=== PATIENT | female | born 1965 | race African-American/Black ===

== ENCOUNTER 2017-10-10 12:52 | Outpatient (CLI) | payer OTHER | END 2017-10-10 12:53 | disposition home or self-care (01) | LOC: BICMAMMO 12:52 | PROVIDERS: ATTEND Obstetrics & Gynecology | DX: Z12.31 Encounter for screening mammogram for malignant neoplasm of breast (principal) | CPT/HCPCS: 77063; 77067 ==

== ENCOUNTER 2018-10-14 10:52 | Day surgery (SDC) | payer OTHER ==
[2018-10-13 09:32] VITALS: BMI 49.2
[2018-10-14] MEDS ORDERED: PROPOFOL 200 MG/20 ML VIAL ONE (15:07)
--- NOTE | 2018-10-14 21:13 | OP ---
DATE OF PROCEDURE: 10/14/2018 PROCEDURE PERFORMED: Colonoscopy. PREMEDICATION: Given by Anesthesiology Department. PREPROCEDURE DIAGNOSIS: Colon screening, average risk. POSTPROCEDURE DIAGNOSES: 1. Diffuse diverticulosis coli. 2. Otherwise normal colon exam. PROCEDURE IN DETAIL: Written consents were obtained prior to procedure. After adequate sedation, rectal exam was performed, it was normal. The endoscope was advanced to the cecum. The quality of the bowel prep was good. Scattered diverticula were noted throughout the colon. The cecum, ascending colon, hepatic flexure, transverse colon, splenic flexure, descending colon, and rectosigmoid colon all appeared normal. Retroflexion did not show any abnormality. The patient tolerated the procedure well. ASSESSMENT: 1. Diverticulosis coli. 2. Otherwise normal colon exam. RECOMMENDATION: 1. Fiber-rich diet. 2. Repeat screening in 10 years. Job ID: [id number] [facility]
--- NOTE | 2018-10-14 21:23 | OP ---
DATE OF PROCEDURE: 10/14/2018 PROCEDURE PERFORMED: Esophagogastroduodenoscopy with Mccarthy dilatation. PREMEDICATION: Given by Anesthesiology Department. PREPROCEDURE DIAGNOSES: 1. Gastroesophageal reflux with suboptimal control. 2. Dysphagia. POSTPROCEDURE DIAGNOSES: 1. Lower esophageal stricture, status post 54-[place] Mccarthy dilation. 2. Otherwise normal upper endoscopy. DESCRIPTION OF PROCEDURE: Written consents were obtained prior to procedure. After adequate sedation, forward viewing endoscope was advanced down the stomach under direct vision to the second portion of duodenum. Both the second portion and the bulb appeared normal. The pylorus was patent. The gastric antrum, body, fundus, and cardia appeared normal. Retroflexion did not show any abnormality. The GE junction was located at 36 cm from the incisors. A concentric benign stricture was seen right above the GE junction. There was no esophagitis or erosions of the esophageal mucosa. The remainder of the esophagus appeared normal. Dilation was then performed using a 54-[place] Mccarthy dilation. Repeat endoscopy did not show any complication. The patient tolerated the procedure well. ASSESSMENT: 1. Normal upper endoscopy. 2. Lower esophageal stricture, status post dilation with 54-[place] Mccarthy. RECOMMENDATIONS: 1. Continue omeprazole 40 mg p.o. q.a.m. 2. Start ranitidine 150 mg at bedtime. 3. Anti-reflux measures with emphasis on weight reduction. Job ID: [id number]
== END 2018-10-14 14:40 | disposition home or self-care (01) ==
LOC: SDC 10:52
PROVIDERS: ATTEND Internal Medicine Gastroenterology
PROC: 0D757ZZ Dilation of Esophagus, Via Natural or Artificial Opening (ICD-10-PCS; principal; 2018-10-14)
PROC: 0DJD8ZZ Inspection of Lower Intestinal Tract, Via Natural or Artificial Opening Endoscopic (ICD-10-PCS; principal; 2018-10-14)
PROC: 0DJ08ZZ Inspection of Upper Intestinal Tract, Via Natural or Artificial Opening Endoscopic (ICD-10-PCS; principal; 2018-10-14)
DX: Z12.11 Encounter for screening for malignant neoplasm of colon (principal); K22.2 Esophageal obstruction; K21.9 Gastro-esophageal reflux disease without esophagitis; K57.30 Diverticulosis of large intestine without perforation or abscess without bleeding; D64.9 Anemia, unspecified; I10 Essential (primary) hypertension; E78.00 Pure hypercholesterolemia, unspecified; G47.30 Sleep apnea, unspecified; Z86.010 Personal history of colon polyps; Z91.013 Allergy to seafood; Z88.8 Allergy status to other drugs, medicaments and biological substances; Z79.899 Other long term (current) drug therapy
CPT/HCPCS: J2704

== ENCOUNTER 2019-07-07 10:41 | Outpatient (CLI) | payer OTHER ==
--- NOTE | 2019-07-08 12:41 | MMO ---
Bilateral MAMMO Bilat Screen [facility]. CLINICAL HISTORY: Patient is 54 years old and is seen for screening. The patient has no family history of breast cancer. The patient has no personal history of cancer. VIEWS: The views performed were: bilateral craniocaudal with tomosynthesis and bilateral mediolateral oblique with tomosynthesis. FILMS COMPARED: The present examination has been compared to prior imaging studies performed at [facility] on 08/15/2008, 09/22/2009, 07/14/2015 and 10/10/2017. This study has been interpreted with the assistance of computer-aided detection. MAMMOGRAM FINDINGS: The breasts are almost entirely fat. There are no suspicious masses, suspicious calcifications, or new areas of architectural distortion. IMPRESSION: THERE IS NO MAMMOGRAPHIC EVIDENCE OF MALIGNANCY. A ROUTINE FOLLOW-UP MAMMOGRAM IN 1 YEAR IS RECOMMENDED. THE RESULTS OF THIS EXAM WERE SENT TO THE PATIENT. ACR BI-RADS Category 1 - Negative MAMMOGRAPHY NOTE: 1. A negative mammogram report should not delay a biopsy if a dominant of clinically suspicious mass is present. 2. Approximately 10% to 15% of breast cancers are not detected by mammography. 3. Adenosis and dense breasts may obscure an underlying neoplasm. Reported by: SCOTT MAYA MD Electonically Signed: [id number]
== END 2019-07-07 10:42 | disposition home or self-care (01) ==
LOC: BICMAMMO 10:41
PROVIDERS: ATTEND Internal Medicine
DX: Z12.31 Encounter for screening mammogram for malignant neoplasm of breast (principal)
CPT/HCPCS: 77063; 77067